=== PATIENT | male | born 1940 | race Native Hawaiian/Other Pacific Islander ===

== ENCOUNTER 2018-05-28 01:04 | Inpatient (IN) | payer OTHER ==
[~2018-05-28] VITALS: Ht 182.9 cm; Wt 95.3 kg
[2018-05-28] VITALS (25 sets, daily range): BP systolic 82–207; BP diastolic 55–134; TEMP 97.8–98.6; Ht 182.9 cm; Wt 95.3 kg
[2018-05-28 01:15] LABS: PLATELET COUNT 207 K/uL (142-355)
[2018-05-28 01:26] LABS: POTASSIUM 3.9 mmol/L (3.6-5.2)
[2018-05-28 08:28] LABS: PLATELET COUNT 149 K/uL (142-355)
[2018-05-28 08:45] LABS: POTASSIUM 4.1 mmol/L (3.6-5.2)
[2018-05-28 09:45] LABS: PARTIAL THROMBOPLASTIN TIME 29.2 SECONDS (24.5-33.6)
[2018-05-29] VITALS (13 sets, daily range): BP systolic 122–170; BP diastolic 62–87; TEMP 97.8–98.8
== END 2018-05-29 12:15 | disposition home health service (06) | DRG 192 ==
LOC: ED 01:04 → ICU 02:35
PROVIDERS: Family Medicine; ADMIT Family Medicine
DX: J44.1 Chronic obstructive pulmonary disease with (acute) exacerbation (principal); I10 Essential (primary) hypertension; I25.10 Atherosclerotic heart disease of native coronary artery without angina pectoris; R06.03 Acute respiratory distress; F17.210 Nicotine dependence, cigarettes, uncomplicated; R91.8 Other nonspecific abnormal finding of lung field; R00.0 Tachycardia, unspecified; R74.8 Abnormal levels of other serum enzymes; R79.89 Other specified abnormal findings of blood chemistry
CPT/HCPCS: 36415; 36600; 51702; 80053; 82150; 82550; 82553; 82805; 83605; 83690; 83880; 84484; 85027; 85379; 85610; 85730; 87040; 93005; 94640; 94660; 94664; 94760; 96365; 96372; 96374; 96375; 99285; J1650; J1940; J1956; J2270; J2930; J3490; Q9963